=== PATIENT | female | born 2005 | race Two or more races ===

== ENCOUNTER 2025-02-01 17:12 | Emergency (ER) | payer MEDICAID, OTHER ==
[~2025-02-01] VITALS: Ht 154.9 cm; Wt 53.5 kg
--- NOTE | 2025-02-01 18:58 | ED.PDOC ---
Eye-HPI HPI Comments 19 y/o F presents with c/c of throat pain since 01/30/25. Associated fever and chills. Denial of any congestion, headache, shortness of breath, or further acute symptoms. 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 History Social History Smoker: Non-Smoker Alcohol: Denies ETOH Use Drugs: Denies Drug Use Lives In: Home All Other Systems: Reviewed and Negative (As per HPI) Physical Exam General Appearance: No Apparent Distress, Normal HEENT: Pharynx Normal, TMs Normal, Other (right tonsillar enlargement with erythema) Neck: Full Range of Motion, Non-Tender, Normal, Normal Inspection Respiratory: Chest Non-Tender, Lungs Clear, No Accessory Muscle Use, No Respiratory Distress, Normal Breath Sounds Cardiovascular: No Edema, No JVD, No Murmur, No Gallop, Normal Peripheral Pulses, Regular Rate/Rhythm Breast Exam: Deferred Gastrointestinal: No Organomegaly, Non Tender, No Pulsatile Mass, Normal Bowel Sounds, Soft Genitalia: Deferred Pelvic: Deferred Rectal: Deferred Extremities: No calf tenderness, Normal capillary refill, Normal inspection, Normal range of motion, Non-tender, No pedal edema Musculoskeletal : Apperance: Normal Neurologic: Alert, legislative advocate II-XII nml as Tested, No Motor Deficits, Normal Affect, Normal Mood, No Sensory Deficits Cerebellar Function: Normal Reflexes: Normal Skin: Dry, Normal Color, Warm Lymphatic: No Adenopathy Was a procedure done? Was a procedure done?: No EENT DIFF Eye: N/A Ear: N/A Nose: N/A Mouth: N/A Sore Throat: Mononeucleosis, Peritonsillar Abscess, Peritonsillar Cellulitis, Pharyngitis, Streptococcal, Viral Pharyngitis, URI X-Ray, Labs, Meds, VS Vital Signs Date Time Temp Pulse Resp B/P (MAP) Pulse Ox O2 Delivery O2 Flow Rate FiO2 02/01/25 17:13 98.2 73 18 121/71 97 98.2 Lab Test 02/01/25 19:08 Range/Units White Blood Count 10.1 4.4-10.8 10^3/uL Red Blood Count 4.85 4.0-5.20 10^6/uL Hemoglobin 13.6 12.2-16.2 g/dL Hematocrit 41.0 36.0-46.0 % Mean Corpuscular Volume 84.6 80.0-100.0 fL Mean Corpuscular Hemoglobin 28.1 28.0-32.0 pg Mean Corpuscular Hemoglobin Concent 33.2 32.0-36.0 g/dL Red Cell Distribution Width 13.6 11.8-14.3 % Platelet Count 357 140-450 10^3/uL Mean Platelet Volume 7.0 6.9-10.8 fL Neutrophils (%) (Auto) 69.0 37.0-80.0 % Lymphocytes (%) (Auto) 22.9 10.0-50.0 % Monocytes (%) (Auto) 7.5 0.0-12.0 % Eosinophils (%) (Auto) 0.2 0.0-7.0 % Basophils (%) (Auto) 0.4 0.0-2.0 % Neutrophils # (Auto) 7.0 1.6-8.6 10 ^3/uL Lymphocytes # (Auto) 2.3 0.4-5.4 10 ^3/uL Monocytes # (Auto) 0.8 0-1.3 10 ^3/uL Eosinophils # (Auto) 0 0-0.8 10 ^3/uL Basophils # (Auto) 0 0-0.2 10 ^3/uL Nucleated Red Blood Cells 0.1 % Sodium Level 140 136-145 mmol/L Potassium Level 3.7 3.5-5.1 mmol/L Chloride Level 103 98-107 mmol/L Carbon Dioxide Level 25 20-31 mmol/L Anion Gap 12 5-15 Blood Urea Nitrogen 11 9-23 mg/dL Creatinine 0.88 0.550-1.02 mg/dL Glomerular Filtration Rate Calc 96 >90 mL/min BUN/Creatinine Ratio 12.5 10.0-20.0 Serum Glucose 88 74-106 mg/dL Calcium Level 10.0 8.7-10.4 mg/dL Total Bilirubin 0.7 0.2-1.0 mg/dL Aspartate Amino Transferase (AST) 14 13-40 U/L Alanine Aminotransferase (ALT) < 9 7-40 U/L Alkaline Phosphatase 100 46-116 U/L Total Protein 8.8 H 5.7-8.2 g/dL Albumin 4.6 3.2-4.8 g/dL X-Ray, Labs, Meds, VS Comment Impression: Tpbim-[id number]-asaw-left palatine tonsillitis with Limited evaluation for abscess given noncontrast imaging. and CMP within normal limits no elevation in white count no findings of leukocytosis. Patient given Rocephin 1 g IM and Decadron 10 mg IM. Script trial of antibiotics and steroid. Advised to take medication as prescribed side ef fects discussed. Advised to rest increase p.o. fluids with electrolytes. Avoid under water activities while with infection. Follow up with your PCP in three days if no improvement. ER return precautions given patient indicates understanding and agrees with discharge plan of care. Images Reviewed?: Images reviewed and evaluated by me Time of 1ST Reevaluation: 19:25 Reevaluation 1ST: Unchanged Time of 2ND Reevaluation: 21:05 Reevaluation 2ND: Improved Patient Education/Counseling: Diagnosis, Treatment Family Education/Counseling: No Family Present SEPSIS Sepsis Screen Date sepsis recognized/suspect: Feb 01, 2025 Time Sepsis recognized/suspect: 1713 Recent Procedure: No On Antibiotic Therapy: No Respiratory Rate >20: No Heart Rate >90: No Temp<36 C (96.8 F) or >38.3 C: No SBP <90 or MAP <65 mmHG: No New Acute Mental Status Change: No Is the patient on CPAP, BIPAP,: No Physician Orders Neck Without Contrast (02/01/25 18:57) Dexamethasone Injection (Decadron Inject (02/01/25 21:15) Ceftriaxone Sodium (Rocephin) (02/01/25 21:15) Vital Signs Date Time Temp Pulse Resp B/P (MAP) Pulse Ox O2 Delivery O2 Flow Rate FiO2 02/01/25 17:13 98.2 73 18 121/71 97 98.2 Laboratory Tests Test 02/01/25 19:08 White Blood Count 10.1 10^3/uL (4.4-10.8) Departure 1 Departure Time of Disposition: 21:05 Impression: Primary Impression: Acute bacterial tonsillitis Disposition: HOME / SELF CARE / HOMELESS Condition: Stable e-Prescriptions Methylprednisolone (Medrol Dosepak) 4 Mg Josué 4 MG PO UD for 6 Days, #21 TAB UAD Prov: [facility] 02/01/25 Cefdinir (Cefdinir) 300 Mg Cap 1 CAP PO BID for 7 Days, #14 CAP Prov: GAN[facility] 02/01/25 Discharged With: Self Critical Care Note Critical Care Time?: No Stability Stability form required: No Heart Score Heart Score: Heart Score Response (Comments) Value History N/A 0 EKG N/A 0 Age N/A 0 Risk Factors N/A 0 Troponin N/A 0 Total 0 I personally scribed for ER ([email or web address]) on 02/01/25 at 18:58. Electronically submitted by Leandro Suarez [email or web address]). ER Feb 01, 2025 18:58 [facility] Feb 01, 2025 21:08
[2025-02-01] MEDS ORDERED: KETOROLAC TROMETH 30 MG/ML 1ML VIAL IV ONE (19:00)
[2025-02-01 19:17] LABS: Hematocrit 41.0 % (36.0-46.0); Hemoglobin 13.6 g/dL (12.2-16.2); Mean Corpuscular Hemoglobin 28.1 pg (28.0-32.0); Mean Corpuscular Volume 84.6 fL (80.0-100.0); Nucleated Red Blood Cells % 0.1 %
[2025-02-01 19:34] LABS: Albumin 4.6 g/dL (3.2-4.8); Alkaline Phosphatase 100 U/L (46-116); Anion Gap 12 (5-15); BUN/Creatinine Ratio 12.5 (10.0-20.0); Bilirubin, Total 0.7 mg/dL (0.2-1.0); Blood Urea Nitrogen 11 mg/dL (9-23); Calcium 10.0 mg/dL (8.7-10.4); Carbon Dioxide 25 mmol/L (20-31); Chloride 103 mmol/L (98-107); Glucose 88 mg/dL (74-106); Potassium 3.7 mmol/L (3.5-5.1); Sodium 140 mmol/L (136-145)
[2025-02-01 19:36] LABS: Alanine Aminotransferase < 9 U/L (7-40); Total Protein 8.8 g/dL (5.7-8.2)
[2025-02-01] MEDS: ACETAMINOPHEN 500 MG TAB or CAP PO ONE (20:05)
[2025-02-01] MEDS: LOSARTAN POTASSIUM 50 MG TAB PO ONE (20:05)
--- NOTE | 2025-02-01 20:40 | DVH ---
_ Procedure: CT NECK WITHOUT CONTRAST Study Date and Requested Time: 02/01/2025 07:44 PM History: Severe right side tonsillar edema Comparison: None Dose: CTDI: 13.15 mGy DLP: 436.19 mGycm Technique: Multiplanar images obtained through the neck without contrast Findings: Enlargement of the Crcie-[id number]-[id number]-leftpalatine tonsil with associated adjacent edema. Limited evaluation for tonsillar abscess given noncontrast imaging. Left palatine tonsilolith is noted. No retropharyngeal edema. Prominent bilateral cervical lymph nodes are noted which are most likely reactive. The glottis and esophagus are unremarkable. The thyroid gland is unremarkable. The lung apices are clear. No evidence of acute osseous abnormalities. Mucous retention cyst within the right maxillary sinus. Impression: [id number]-[id number]-left palatine tonsillitis with Limited evaluation for abscess given noncontrast imaging.
[2025-02-01] MEDS ORDERED: METH4PAK PO (21:07)
[2025-02-01] MEDS ORDERED: CEFD300C2 PO (21:07)
[2025-02-01 21:23] VITALS: BP 117/67; PULSE 77; RESP 16; TEMP 97.9; O2SAT 99
[2025-02-01] MEDS: cefTRIAXone SOD 1,000 MG VL IM ONE (21:23)
== END 2025-02-01 21:35 | disposition home or self-care (01) ==
LOC: ER 17:12
DX: J03.90 Acute tonsillitis, unspecified (principal); M54.2 Cervicalgia
CPT/HCPCS: 36415; 70490; 80053; 85025; 96372; 99285; J0696; J1100